=== PATIENT | female | born 1980 ===

== ENCOUNTER 2018-10-10 09:39 | Inpatient (IN) | payer OTHER ==
[~2018-10-10] VITALS: Ht 154.9 cm; Wt 2.7 kg
[~2018-10-10 09:39] MED LIST: PRENATAL TABLE1 EAC2 PO
== END 2018-10-12 14:38 | disposition home or self-care (01) | DRG 786 ==
LOC: LDR 09:39 → OB/GYN 09:39
PROVIDERS: Obstetrics & Gynecology
PROC: 4A1HXCZ Monitoring of Products of Conception, Cardiac Rate, External Approach (ICD-10-PCS; 2018-10-10)
PROC: 4A033R1 Measurement of Arterial Saturation, Peripheral, Percutaneous Approach (ICD-10-PCS; 2018-10-10)
PROC: 10D00Z1 Extraction of Products of Conception, Low, Open Approach (ICD-10-PCS; principal; 2018-10-10 11:00)
DX: O45.8X3 Other premature separation of placenta, third trimester (principal); O60.14X0 Preterm labor third trimester with preterm delivery third trimester, not applicable or unspecified; Z3A.36 36 weeks gestation of pregnancy; Z37.0 Single live birth